=== PATIENT | male | born 1970 | race Caucasian/White ===

== ENCOUNTER 2016-11-22 15:27 | Day surgery (SDC) | payer BC ==
[~2016-11-22] VITALS: Ht 182.9 cm; Wt 93.5 kg
[~2016-11-22 15:27] MED LIST: CIPR500T4 PO; HYDR-762 PO
[2016-11-22 15:55] VITALS: Ht 182.9 cm; Wt 93.5 kg
[2016-11-22] MEDS ORDERED: BP MEDS (16:22)
[2016-11-22 16:36] VITALS: BP 117/70; PULSE 59; RESP 15
[2016-11-22 17:20] VITALS: BP 104/67; RESP 20
--- NOTE | 2016-11-23 04:58 | GILP ---
DATE OF PROCEDURE: 11/22/2016 PREOPERATIVE DIAGNOSES: 1. Right lower quadrant abdominal pain. 2. Change in bowel habits. POSTOPERATIVE DIAGNOSES: 1. Colonoscopy all the way to the cecum and into the terminal ilium. 2. Normal terminal ilium. 3. Internal hemorrhoids. 4. No colitis or neoplasm was identified. PROCEDURE PERFORMED: Colonoscopy. SURGEON: Terry Andrade MD. INDICATION FOR PROCEDURE: Mr. Romario Mark is a 46-year-old male patient who was complaining of right lower quadrant pain associated with change in the bowel habits. The patient was scheduled for colonoscopy for further evaluation. The patient had normal abdominal CT scan. The procedure and possible complications were well explained to the patient. He understood and consented to the procedure. DESCRIPTION OF PROCEDURE: Under the influence of anesthesia the colonoscope was carefully introduced in the rectum and under direct vision it was advanced all the way to the cecum and into the terminal ileum. Findings, the terminal ileum was normal. The cecum and the right colon were normal. The patient was noted to have internal hemorrhoids. No colitis or neoplasm was identified. He tolerated the procedure very well. There was no complications from the procedure. At the end of procedure he was awake with stable vital signs and he was discharged home in the care of his family. IMPRESSION: 1. Normal terminal ileum. 2. Normal colonoscopic examination except for internal hemorrhoids. 3. No colitis or neoplasm was identified. PLAN: 1. Bentyl 10 mg p.o. t.i.d. p.r.n. for pain. 2. High-fiber diet. Dictated By: MD REGGIE Hirsch/adela/jeronimo /Document#: [id number] CC: Terry Andrade MD;*EndCC*
[2016-11-23] MEDS ORDERED: PROPOFOL 60 ML ONE (18:02)
[2016-11-23] MEDS ORDERED: LIDOCAINE 2% (SDV) 5 ML INJ ONE (18:02)
== END 2016-11-22 17:23 | disposition home or self-care (01) ==
LOC: GIL 15:27
PROVIDERS: ATTEND Internal Medicine Gastroenterology
DX: R10.31 Right lower quadrant pain (principal); R19.4 Change in bowel habit; K64.8 Other hemorrhoids; E66.01 Morbid (severe) obesity due to excess calories; Z68.28 Body mass index [BMI] 28.0-28.9, adult

== ENCOUNTER 2018-05-16 07:20 | Inpatient (IN) | payer BC ==
[~2018-05-16] VITALS: Ht 177.8 cm; Wt 97.0 kg
[~2018-05-16 07:20] MED LIST changes: +BP MEDS; -CIPR500T4 PO
[2018-05-16 12:30] VITALS: BP 117/73; PULSE 70; RESP 18
[2018-05-16 12:55] VITALS: Ht 177.8 cm; Wt 97.0 kg
--- NOTE | 2018-05-16 14:10 | HP ---
Date/Time of Note Date/Time of Note DATE: 05/16/18 TIME: 14:07 Assessment/Plan VTE Prophylaxis SCD applied (from [place]): Yes Pharmacological prophylaxis: NA/contraindicated Pharm contraindication: low risk/ambulating Assessment/Plan Assessment/Plan 47-year-old male with history of kidney stones who now presents with R sided flank and groin pain managed as follows: 1. Obstructive nephrolithiasis 2. Severe flank pain secondary to #1 #3 3. Right-sided hydronephrosis on ultrasound and CT secondary to #1 Plan: IV fluids, pain control, urology consult, supportive care. Urinalysis and urine cultures Further evaluation and treatment will be based on clinical course Full discussion with care team done. All questions Answered Please also see orders. HPI/ROS Admit Date/Time Admit Date/Time May 16, 2018 at 11:56 Hx of Present Illness 47-year-old male who had presented to the outpatient emergency room with complaints of severe right flank pain radiating to Rgroin associated with nausea and diaphoresis. Patient has had no hematuria though. He does have a history of kidney stones and has had similar in the past when he had to have cystoscopy and lithotripsy about 3 years ago There is been no fever, no melanotic stools, no passing out episodes. ROS 12 point review if systems was done and pertinent findings are as noted. PMH/Family/Social Past Medical History Nephrolithiasis . Coded Allergies: No Known Allergy (Unverified , 01/28/15) Past Surgical History Cystoscopy and lithotripsy Family History Significant Family History: no pertinent family hx Social History Alcohol Use: occasionally Smoking Status: Current some day smoker Drug Use: none Exam/Review of Systems Exam Constitutional: alert, oriented Psych: anxiety Head: normocephalic Respiratory: clear to auscultation Cardiovascular: regular rate and rhythm Gastrointestinal: soft, tender (R groin) Genitourinary - Male: CVA tenderness Extremities: No edema Neurological: nl mental status, nl speech SHEA OLGUIN May 16, 2018 14:10
[2018-05-16] MEDS ORDERED: DOCUSATE SODIUM 100 MG CAP PO SCH (14:30)
[2018-05-16] MEDS ORDERED: morphine 2 MG INJ IV PRN (14:30)
[2018-05-16] MEDS ORDERED: ONDANSETRON 4 MG INJ IV PRN (14:30)
[2018-05-16] MEDS ORDERED: ZOLPIDEM 5 MG TAB PO PRN (14:30)
[2018-05-16] MEDS ORDERED: LORAZEPAM 0.5 MG TAB PO PRN (15:00)
[2018-05-16] MEDS: SOD CHLORIDE 0.9% 1,000 ML IV SCH ×2 (15:09→19:31)
[2018-05-16] MEDS: KETOROLAC 30 MG INJ IV PRN (15:09)
[2018-05-16] MEDS: morphine 4 MG/ML VIAL IV PRN (17:40)
[2018-05-16] MEDS ORDERED: morphine 4 MG/ML VIAL IV PRN (18:30)
[2018-05-16] MEDS: DOCUSATE SODIUM 100 MG CAP PO SCH (20:01)
[2018-05-16 20:17] VITALS: BP 115/65; PULSE 68; RESP 18
--- NOTE | 2018-05-16 20:39 | CONS ---
Date/Time of Note Date/Time of Note DATE: 05/16/18 TIME: 20:28 Assessment/Plan Assessment/Plan Assessment/Plan 47-year-old male presented to [facility] with right flank pain. He is known to have a history of kidney stones. He had a CT scan of the abdomen and pelvis and that showed a large stone in the right ureter at the level of the sacroiliac joint area. The patient was transferred to [facility] because of his insurance. The patient reports about 3 years ago he underwent extracorporeal shockwave lithotripsy. He had to have a JJ stent and in fact that was put in percutaneously as they were not able to pass it in a retrograde fashion. On the physical exam he still has severe pain and right flank tenderness. The stone that he has measured 8 x 12 mm and it is too big for him to pass. Therefore the plan would be to do a cystoscopy right ureteroscopy, laser lithotripsy and insertion of right ureteral JJ stent. If we cannot remove the stone will try to put the JJ stent. And I explained to him and to his the possibility that he may need more than one treatment because of the size of the stone. Results 24hrs Laboratory Tests Test 05/16/18 17:10 Urine Color YELLOW Urine Clarity CLEAR Urine pH 5.0 Urine Specific [place] 1.019 Urine Ketones NEGATIVE Urine Nitrite NEGATIVE Urine Bilirubin NEGATIVE Urine Urobilinogen NEGATIVE Urine Leukocyte Esterase NEGATIVE Urine Microscopic RBC 13 H Urine Microscopic WBC 3 Urine Mucus FEW A Urine Hemoglobin 3+ H Urine Glucose NEGATIVE Urine Total Protein NEGATIVE Consultation Date/Type/Reason Admit Date/Time May 16, 2018 at 11:56 Date of Consultation: May 16, 2018 Type of Consult Urology Reason for Consultation Right ureteral stone Requesting Provider: SHEA OLGUIN Hx of Present Illness 47-year-old male presented to [facility] with right flank pain. He is known to have a history of kidney stones. He had a CT scan of the abdomen and pelvis and that showed a large stone in the right ureter at the level of the sacroiliac joint area. The patient was transferred to [facility] because of his insurance. The patient reports about 3 years ago he underwent extracorporeal shockwave lithotripsy. He had to have a JJ stent and in fact that was put in percutaneously as they were not able to pass it in a retrograde fashion. Constitutional: no complaints Eyes: no complaints ENT: no complaints Respiratory: No shortness of breath Cardiovascular: no complaints; No chest pain Gastrointestinal: pain (Right side of abdomen and right lower quadrant) Genitourinary: flank pain (Right flank), other (Pain radiates to his right testicle); No dysuria, No hematuria Musculoskeletal: no complaints Skin: no complaints Neurologic: no complaints Endocrine: no complaints Lymphatic: no complaints Psychological: no complaints Immunologic: no complaints Past Medical History Medical History: hypertension Medications Current Medications Sodium Chloride 1,000 ml @ 125 mls/hr Q8H IV Last administered on 05/16/18at 15:09; Admin Dose 125 MLS/HR; Start 05/16/18 at 14:09 Ondansetron HCl (Zofran Inj) 4 mg Q6H PRN IV NAUSEA AND/OR VOMITING; Start 05/16/18 at 14:30 Zolpidem Tartrate (Ambien) 5 mg QHS PRN PO SLEEP; Start 05/16/18 at 14:30 Ketorolac Tromethamine (Toradol) 30 mg Q6H PRN IV PAIN LEVEL 1-3 Last administered on 05/16/18at 15:09; Admin Dose 30 MG; Start 05/16/18 at 14:30; Stop 05/18/18 at 14:29 Lorazepam (Ativan) 0.5 mg Q6H PRN PO ANXIETY; Start 05/16/18 at 15:00 Morphine Sulfate (morphine) 4 mg Q4H PRN IV SEVERE PAIN LEVEL 7-10 Last administered on 05/16/18at 17:40; Admin Dose 4 MG; Start 05/16/18 at 17:30 Docusate Sodium (Colace) 100 mg Q12H PO Last administered on 05/16/18at 20:01; Admin Dose 100 MG; Start 05/16/18 at 21:00 Allergies: Coded Allergies: No Known Allergy (Unverified , 01/28/15) Past Surgical History Past Surgical Hx: other (Right extracorporeal shockwave lithotripsy and insertion of right ureteral JJ stent at the [facility] 3 years ago) Social History Alcohol Use: none Smoking Status: Light tobacco smoker Drug Use: none Exam/Review of Systems Vital Signs Vitals Vital Signs Date Temp Pulse Resp B/P (MAP) Pulse Ox O2 O2 Flow FiO2 Time Delivery Rate 05/16/18 98.4 68 18 115/65 95 20:17 (82) Exam Constitutional: alert, oriented Psych: no complaints Head: normocephalic Eyes: nl conjunctiva ENMT: nl external ears & nose Neck: supple, non-tender Respiratory: normal air movement; No wheezing Cardiovascular: No jugular venous distention (JVD) Gastrointestinal: tender (Right side of abdomen) Genitourinary - Male: nl penis, nl scrotum, CVA tenderness (Right flank) Musculoskeletal: nl extremities to inspection Extremities: No calf tenderness Neurological: nl mental status Medications Medications Current Medications Sodium Chloride 1,000 ml @ 125 mls/hr Q8H IV Last administered on 05/16/18at 15:09; Admin Dose 125 MLS/HR; Start 05/16/18 at 14:09 Ondansetron HCl (Zofran Inj) 4 mg Q6H PRN IV NAUSEA AND/OR VOMITING; Start 05/16/18 at 14:30 Zolpidem Tartrate (Ambien) 5 mg QHS PRN PO SLEEP; Start 05/16/18 at 14:30 Ketorolac Tromethamine (Toradol) 30 mg Q6H PRN IV PAIN LEVEL 1-3 Last administered on 05/16/18at 15:09; Admin Dose 30 MG; Start 05/16/18 at 14:30; Stop 05/18/18 at 14:29 Lorazepam (Ativan) 0.5 mg Q6H PRN PO ANXIETY; Start 05/16/18 at 15:00 Morphine Sulfate (morphine) 4 mg Q4H PRN IV SEVERE PAIN LEVEL 7-10 Last administered on 05/16/18at 17:40; Admin Dose 4 MG; Start 05/16/18 at 17:30 Docusate Sodium (Colace) 100 mg Q12H PO Last administered on 05/16/18at 20:01; Admin Dose 100 MG; Start 05/16/18 at 21:[address] scan of the abdomen and pelvis done at the other hospital showed a 12 x 8 mm stone in the right ureter at the level of the sacroiliac joint. That resulted in right hydronephrosis. INEZ YOUNGER MD May 16, 2018 20:39
[2018-05-17] VITALS (19 sets, daily range): BP systolic 110–161; BP diastolic 62–91; PULSE 58–94; RESP 11–22
[2018-05-17] MEDS: SOD CHLORIDE 0.9% 1,000 ML IV SCH ×3 (00:37→22:32)
[2018-05-17] MEDS: morphine 4 MG/ML VIAL IV PRN ×4 (03:04→21:58)
--- NOTE | 2018-05-17 06:48 | PN ---
Date/Time of Note Date/Time of Note DATE: 05/17/18 TIME: 06:44 Assessment/Plan VTE Prophylaxis Risk score (from [place])>0 risk: 4 SCD applied (from [place]): Yes Pharmacological prophylaxis: NA/contraindicated Pharm contraindication: low risk/ambulating Lines/Catheters IV [facility] (from [facility]): Peripheral IV Urinary Cath still in place: No Assessment/Plan Result Diagram: 05/17/18 0435 05/17/18 0435 Results 24hrs Laboratory Tests Test 05/16/18 17:10 05/16/18 21:08 05/16/18 21:09 05/17/18 04:35 Urine Color YELLOW Urine Clarity CLEAR Urine pH 5.0 Urine Specific 1.019 [place] Urine Ketones NEGATIVE Urine Nitrite NEGATIVE Urine Bilirubin NEGATIVE Urine Urobilinogen NEGATIVE Urine Leukocyte NEGATIVE Esterase Urine Microscopic 13 H RBC Urine Microscopic 3 WBC Urine Mucus FEW A Urine Hemoglobin 3+ H Urine Glucose NEGATIVE Urine Total Protein NEGATIVE White Blood Count 6.1 5.7 Red Blood Count 5.10 5.01 Hemoglobin 14.6 14.5 Hematocrit 42.3 41.3 L Mean Corpuscular 82.9 82.4 Volume Mean Corpuscular 28.6 L 28.9 L Hemoglobin Mean Corpuscular 34.5 35.1 Hemoglobin Concent Red Cell 13.4 13.4 Distribution Width Platelet Count 158 167 Mean Platelet Volume 10.1 10.2 Immature 0.200 0.300 Granulocytes % Neutrophils % 59.4 61.9 Lymphocytes % 28.9 25.9 Monocytes % 8.5 8.6 Eosinophils % 2.8 3.0 Basophils % 0.2 0.3 Nucleated Red Blood 0.0 0.0 Cells % Immature 0.010 0.020 Granulocytes # Neutrophils # 3.6 3.5 Lymphocytes # 1.8 1.5 Monocytes # 0.5 0.5 Eosinophils # 0.2 0.2 Basophils # 0.0 0.0 Nucleated Red Blood 0.0 0.0 Cells # Sodium Level 137 137 Potassium Level 3.7 3.9 Chloride Level 106 106 Carbon Dioxide Level 26 23 Anion Gap 5 8 Blood Urea Nitrogen 19 19 Creatinine 1.83 H 1.82 H Est Glomerular 40 L 40 L Filtrat Rate mL/min Glucose Level 94 88 Calcium Level 8.8 8.5 Total Bilirubin 0.3 Direct Bilirubin 0.00 Indirect Bilirubin 0.3 Aspartate Amino 20 Transf (AST/SGOT) Alanine 21 Aminotransferase (AL T/SGPT) Alkaline Phosphatase 56 Total Protein 6.1 Albumin 3.5 Globulin 2.60 Albumin/Globulin 1.34 Ratio Prothrombin Time 13.0 Prothrombin Time 1.0 Ratio INR International 0.97 Normalized Ratio Activated 26.4 Partial Thromboplast Time Hemoglobin A1c 5.4 Magnesium Level 1.8 Subjective 24 Hr Interval Summary Free Text/Dictation S: Pain is better, but requiring scheduled doses of pain meds O: General: A&O x3, answering questions appropriately HEENT: NC/ AT. PERRL. EOM intact Neck: supple CVS: S1, S2, RRR. no murmurs. no pain on chest wall palpation Lungs: CTA b/l. no wheezing or rhonchi Abd: soft, nontender, +BS Ext: moving all extremities skin: no rashes assessment and Plan: 47-year-old male with history of kidney stones who now presents with flank pain managed as follows: 1. Obstructive nephrolithiasis -s/p urology review, appreciate input -Per urology, The stone is too big for him to pass. Therefore the plan would be to do a cystoscopy right ureteroscopy, laser lithotripsy and insertion of right ureteral JJ stent. If we cannot remove the stone will try to put the JJ stent. -surgery planned for hopefully later today 2. Severe flank pain secondary to #1 #3 -continue pain control 3. Right-sided hydronephrosis on ultrasound and CT secondary to #1 -daily monitoring of renal function 4. YAHAIRA: -likely obstructive from #1 and 3, r/o CKD in view of hx -Renally dose all meds. Serial labs. Further interventions per clinical course. Exam/Review of Systems Vital Signs Vitals Vital Signs Date Temp Pulse Resp B/P (MAP) Pulse Ox O2 O2 Flow FiO2 Time Delivery Rate 05/17/18 98.4 69 18 132/75 94 04:07 (94) 05/16/18 Room Air 12:30 Intake and Output 05/16/18 05/16/18 05/17/18 1515:00 23:00 07:00 IntakeIntake Total 730 ml 1550 ml BalanceBalance 730 ml 1550 ml Medications Medications Current Medications Sodium Chloride 1,000 ml @ 125 mls/hr Q8H IV Last administered on 05/17/18at 00:37; Admin Dose 125 MLS/HR; Start 05/16/18 at 14:09 Ondansetron HCl (Zofran Inj) 4 mg Q6H PRN IV NAUSEA AND/OR VOMITING; Start 05/16/18 at 14:30 Zolpidem Tartrate (Ambien) 5 mg QHS PRN PO SLEEP; Start 05/16/18 at 14:30 Ketorolac Tromethamine (Toradol) 30 mg Q6H PRN IV PAIN LEVEL 1-3 Last administered on 05/16/18at 15:09; Admin Dose 30 MG; Start 05/16/18 at 14:30; Stop 05/18/18 at 14:29 Lorazepam (Ativan) 0.5 mg Q6H PRN PO ANXIETY; Start 05/16/18 at 15:00 Morphine Sulfate (morphine) 4 mg Q4H PRN IV SEVERE PAIN LEVEL 7-10 Last administered on 05/17/18at 03:04; Admin Dose 4 MG; Start 05/16/18 at 17:30 Docusate Sodium (Colace) 100 mg Q12H PO Last administered on 05/16/18at 20:01; Admin Dose 100 MG; Start 05/16/18 at 21:00 SHEA OLGUIN May 17, 2018 06:48
[2018-05-17] MEDS ORDERED: SEVOFLURANE 15 MIN ONE (07:00)
[2018-05-17] MEDS ORDERED: EPHEDrine SULFATE 50 MG/5 ML SYG ONE (07:00)
[2018-05-17] MEDS: DOCUSATE SODIUM 100 MG CAP PO SCH ×2 (08:31→21:00)
[2018-05-17] MEDS: KETOROLAC 30 MG INJ IV PRN (10:14)
--- NOTE | 2018-05-17 18:11 | PREAC ---
Date/Time of Note Date/Time of Note DATE: 05/17/18 TIME: 18:08 Anesthesia Eval and Record Evaluation Time Pre-Procedure Interview DATE: 05/17/18 TIME: 18:08 Age 47 Sex male NPO: 8 hrs Preoperative diagnosis Kidney Stone Right Ureter Planned procedure Cystoscopy Right Ureteroscopy and laser lithotripsy and stent placement Past Medical History Past Medical History: Includes Cardio: HTN GI: Obesity Surgery & Anesthesia Issues No known issue Meds Anticoagulation: No Beta Christiana within 24 hr: No Reason Beta Christiana not given: Pt. not on B-[place] Active Scripts Hydrocodone Bit-Acetaminophen* ([place]*) 10-325 Mg Tablet, 1 TAB PO Q6 PRN for PAIN, #15 TAB Prov:SENDY HYATT SUGAR [employer] 01/28/15 Reported Medications [Bp Meds] No Conflict Check 11/22/16 Current Medications Sodium Chloride 1,000 ml @ 125 mls/hr Q8H IV Last administered on 05/17/18at 10:10; Admin Dose 125 MLS/HR; Start 05/16/18 at 14:09 Ondansetron HCl (Zofran Inj) 4 mg Q6H PRN IV NAUSEA AND/OR VOMITING; Start 05/16/18 at 14:30 Zolpidem Tartrate (Ambien) 5 mg QHS PRN PO SLEEP; Start 05/16/18 at 14:30 Ketorolac Tromethamine (Toradol) 30 mg Q6H PRN IV PAIN LEVEL 1-3 Last administered on 05/17/18at 10:14; Admin Dose 30 MG; Start 05/16/18 at 14:30; Stop 05/18/18 at 14:29 Lorazepam (Ativan) 0.5 mg Q6H PRN PO ANXIETY; Start 05/16/18 at 15:00 Morphine Sulfate (morphine) 4 mg Q4H PRN IV SEVERE PAIN LEVEL 7-10 Last administered on 05/17/18at 15:30; Admin Dose 4 MG; Start 05/16/18 at 17:30 Docusate Sodium (Colace) 100 mg Q12H PO Last administered on 05/17/18at 08:31; Admin Dose 100 MG; Start 05/16/18 at 21:00 Meds reviewed: Yes Allergies Coded Allergies: No Known Allergy (Unverified , 01/28/15) Allergies Reviewed: Yes Labs/Studies Labs Reviewed: Reviewed by anesthesiologist Result Diagram: 05/17/18 0435 05/17/18 0435 Laboratory Tests 05/17/18 04:35 test: N/A Studies: ECG (n/a), CXR (n/a) Pre-procedure Exam Last vitals Vital Signs Date Temp Pulse Resp B/P (MAP) Pulse Ox O2 O2 Flow FiO2 Time Delivery Rate 05/17/18 98.8 63 18 124/78 93 08:30 (93) 05/16/18 Room Air 12:30 Airway: Adequate mouth opening, Adequate thyromental dist Mallampati: Mallampati II Teeth: Normal Lung: Normal Heart: Normal ASA Physical Status ASA physical status: 2 Emergency: None Planned Anesthetic General/MAC: LMA Planned Pain Management Parenteral pain med Pre-operative Attestations Prior to commencing anesthesia and surgery, the patient was re-evaluated, there was verification of: *The patient's identity *The results of appropriate recent lab work and preoperative vital signs *The above evaluation not changing prior to induction *Anesthetic plan, risk benefits, alternative and complications discussed with patient/family; questions answered; patient/family understands, accepts and wishes to proceed. DEVIKA HOYOS MD May 17, 2018 18:11
[2018-05-17] MEDS ORDERED: CEFAZOLIN 1 GM INJ ONE (18:14)
[2018-05-17] MEDS ORDERED: MIDAZOLAM 1 MG/ML 2 ML INJ ONE (18:14)
[2018-05-17] MEDS ORDERED: PROPOFOL 20 ML ONE (18:14)
[2018-05-17] MEDS ORDERED: HYDROmorphONE 1 MG/5 ML IV SYRINGE IV PRN ×3 (18:30)
[2018-05-17] MEDS ORDERED: FENTAnyl 50 MCG/ML VIAL IV PRN ×2 (18:30)
[2018-05-17] MEDS ORDERED: EPHEDrine SULFATE 50 MG/5 ML SYG IV PRN (18:30)
[2018-05-17] MEDS ORDERED: DIPHENHYDRAMINE 50 MG INJ IV PRN (18:30)
[2018-05-17] MEDS ORDERED: hydrALAzine 20 MG INJ IV PRN (18:30)
[2018-05-17] MEDS ORDERED: METOCLOPRAMIDE 10 MG INJ IV PRN (18:30)
[2018-05-17] MEDS ORDERED: ONDANSETRON 4 MG INJ IV PRN (18:30)
[2018-05-17] MEDS ORDERED: MEPERIDINE 25 MG INJ IV PRN (18:30)
[2018-05-17] MEDS ORDERED: LABETALOL HCL 20MG INJ IV PRN (18:30)
[2018-05-17] MEDS ORDERED: PHENYLephrine (100 MCG/ML) 5ML SYG ONE ×2 (18:47)
[2018-05-17] MEDS ORDERED: ONDANSETRON 4 MG INJ ONE (18:50)
[2018-05-17] MEDS ORDERED: KETOROLAC 30 MG INJ ONE (18:51)
[2018-05-17] MEDS ORDERED: DEXAMETHASONE 4 MG/ML 5 ML INJ ONE (18:51)
[2018-05-17] MEDS ORDERED: METOCLOPRAMIDE 10 MG INJ ONE (18:51)
--- NOTE | 2018-05-17 20:06 | PAC ---
Date/Time of Note Date/Time of Note DATE: 05/17/18 TIME: 20:05 Post-Anesthesia Notes Post-Anesthesia Note Last documented vital signs Vital Signs Date Temp Pulse Resp B/P (MAP) Pulse Ox O2 O2 Flow FiO2 Time Delivery Rate 05/17/18 98.8 63 18 124/78 93 face mask 8 L 20:00 (93) 05/16/18 Room Air 12:30 Activity: WNL Respiratory function: WNL Cardiovascular function: WNL Mental status: Baseline Pain reasonably controlled: Yes Hydration appropriate: Yes Nausea/Vomiting absent: Yes DEVIKA HOYOS MD May 17, 2018 20:06
--- NOTE | 2018-05-17 20:20 | OPR ---
Date/Time of Note Date/Time of Note DATE: 05/17/18 TIME: 20:14 Operative Report Procedure Date: May 17, 2018 Preoperative Diagnosis Large right ureteral stone Postoperative Diagnosis Same Operation/Procedure Performed Cystoscopy, right ureteroscopy, laser lithotripsy and insertion of right ureteral JJ stent Surgeon see signature line Pegger Dobby Looms Lisa Schumacher Anesthesia Type: general Anesthesiologist: DEVIKA HOYOS MD Estimated Blood Loss: none Transfusion none Specimen Stone fragments Grafts/Implants none Tubes/Drains 6 Brazilian by 24 cm long JJ stent Complications none Pt Condition Post Procedure: stable Disposition: PACU Indications Large right ureteral stone causing obstruction and severe pain Procedure Description The patient was brought to the operating room and general anesthesia was induced. The patient received 2 g of Ancef IV at the start of the procedure. Timeout was done and the patient was identified by his name,birthdate and the procedure and the side of the procedure. The patient was then positioned in the lithotomy position and the genital area was prepped and draped in the usual sterile manner. A 21 Brazilian cystoscope sheath was introduced i under direct vision through the penile urethra and into the bladder. The right ureteral orifice was identified and then cannulated with a 5 Brazilian open ended ureteral catheter. A 0.035 zip wire was advanced through the open ended catheter all the way up to the kidney. The open-ended was removed leaving the zip wire in place. The open-ended was then introduced through the second working channel of the scope and the ureteral orifice was cannulated again and a 0.035 zip wire was passed all the way up to the kidney. The open-ended was removed leaving the wires in place. Then the cystoscope was removed. One wire was used as a safety wire and the other wire was used to advance the rigid ureteroscope on it into the ureter. The stone was then visualized and broken with the holmium laser into pieces. These pieces were basketed and dropped into the bladder until the ureter was free of stone fragments. The ureteroscope was then removed. Cystoscopy was done again and the stone fragments were drained out of the bladder. Then the cystoscope was reintroduced into the bladder over the safety wire and a 6 Brazilian by 24 cm long JJ stent was advanced on the wire, had its proximal end curling into the kidney and the distal end curling into the bladder. The distal end is connected to a string that was taped to the patient's penis. The patient was transferred to recovery room in stable and satisfactory condition INEZ YOUNGER MD May 17, 2018 20:20
[2018-05-17] MEDS ORDERED: HYDROCODONE/APAP (5/325) TAB PO PRN (20:30)
[2018-05-17] MEDS: FENTAnyl 50 MCG/ML VIAL IV PRN ×2 (21:12→22:28)
--- NOTE | 2018-05-17 21:49 | RADRPT ---
Vent Rate: 63 bpm RR Interval: 0 msec HI Interval: 152 msec QRS Duration: 94 msec QT Interval: 366 msec QTC Interval: 374 msec P-R-T [place]: 55 - -24 - 51 degrees Normal sinus rhythm Normal ECG Electronically Signed By: Cole Corona [id number]
[2018-05-18] VITALS: BP_SYST 111; BP_SYST 125; BP_SYST 98; BP_DIAS 60; BP_DIAS 62; BP_DIAS 65; PULSE 72; PULSE 79; PULSE 89; RESP 20
[2018-05-18 05:00] VITALS: BP 135/73; RESP 18
[2018-05-18] MEDS: SOD CHLORIDE 0.9% 1,000 ML IV SCH (06:41)
--- NOTE | 2018-05-18 07:08 | PN ---
Date/Time of Note Date/Time of Note DATE: 05/18/18 TIME: 07:06 Assessment/Plan VTE Prophylaxis Risk score (from Ns)>0 risk: 7 SCD applied (from Ns): Yes Pharmacological prophylaxis: NA/contraindicated Pharm contraindication: hemorrhagic infarct Lines/Catheters IV Catheter Type (from Nrs): Peripheral IV Urinary Cath still in place: No Assessment/Plan Result Diagram: 05/17/1843405/17/18434 Subjective 24 Hr Interval Summary Free Text/Dictation S: s/p surgery yesterday, smild post op pain O: General: A&O x3, answering questions appropriately HEENT: NC/ AT. PERRL. EOM intact Neck: supple CVS: S1, S2, RRR. no murmurs. no pain on chest wall palpation Lungs: CTA b/l. no wheezing or rhonchi Abd: soft, nontender, +BS Ext: moving all extremities skin: no rashes assessment and Plan: 47-year-old male with history of kidney stones who now presents with flank pain managed as follows: 1. Obstructive nephrolithiasis -s/p cystoscopy right ureteroscopy, laser lithotripsy and insertion of right ureteral JJ stent 05/17/18 2. Severe flank pain secondary to #1 #3; resolved 3. Right-sided hydronephrosis on ultrasound and CT secondary to #1 -see #1 4. YAHAIRA: -likely obstructive from #1 and 3, r/o CKD in view of hx -Renally dose all meds. f/u am labs 5. alpha hemolytic strep UTI -20-30,000 CFU, will give 1 dose of zosyn Dispo: possible d/c later today if cleared by urology Exam/Review of Systems Vital Signs Vitals Vital Signs Date Temp Pulse Resp B/P (MAP) Pulse Ox O2 O2 Flow FiO2 Time Delivery Rate 05/18/18 98.8 18 135/73 93 Room Air 05:00 (93) 05/18/18 89 00:00 05/17/18 8.0 20:30 Intake and Output 05/17/18 05/17/18 05/18/18 1515:00 23:00 07:00 IntakeIntake Total 760 ml 1700 ml 850 ml OutputOutput Total 200 ml 5 ml BalanceBalance 560 ml 1695 ml 850 ml Medications Medications Current Medications Sodium Chloride 1,000 ml @ 125 mls/hr Q8H IV Last administered on 05/18/18at 06:41; Admin Dose 125 MLS/HR; Start 05/16/18 at 14:09 Ondansetron HCl (Zofran Inj) 4 mg Q6H PRN IV NAUSEA AND/OR VOMITING; Start 05/16/18 at 14:30 Zolpidem Tartrate (Ambien) 5 mg QHS PRN PO SLEEP; Start 05/16/18 at 14:30 Ketorolac Tromethamine (Toradol) 30 mg Q6H PRN IV PAIN LEVEL 1-3 Last administered on 05/17/18at 10:14; Admin Dose 30 MG; Start 05/16/18 at 14:30; Stop 05/18/18 at 14:29 Lorazepam (Ativan) 0.5 mg Q6H PRN PO ANXIETY; Start 05/16/18 at 15:00 Morphine Sulfate (morphine) 4 mg Q4H PRN IV SEVERE PAIN LEVEL 7-10 Last administered on 05/17/18at 21:58; Admin Dose 4 MG; Start 05/16/18 at 17:30 Docusate Sodium (Colace) 100 mg Q12H PO Last administered on 05/17/18at 08:31; Admin Dose 100 MG; Start 05/16/18 at 21:00 Acetaminophen/ Hydrocodone Bitart ([place] (5/325)) 1 tab Q6H PRN PO PAIN LEVEL 6-10; Start 05/17/18 at 20:30 Atenolol (Tenormin) 50 mg DAILY PO ; Start 05/18/18 at 09:00 SHEA OLGUIN May 18, 2018 07:08
[2018-05-18] MEDS ORDERED: PIPER-TAZO 3.375 GM IV (PMX) 100 ML IVPB ONE (07:30)
[2018-05-18] MEDS: KETOROLAC 30 MG INJ IV PRN (07:39)
[2018-05-18 08:06] VITALS: BP 121/65; PULSE 74; RESP 18
[2018-05-18] MEDS ORDERED: ATENOLOL 50 MG TAB PO SCH (09:00)
[2018-05-18] MEDS: DOCUSATE SODIUM 100 MG CAP PO SCH (09:09)
[2018-05-18] MEDS: morphine 4 MG/ML VIAL IV PRN (09:12)
[2018-05-18] MEDS ORDERED: ATEN50TA PO (12:49)
[2018-05-18] MEDS ORDERED: DOCU-216 PO (12:49)
--- NOTE | 2018-05-18 14:58 | CONS ---
Date/Time of Note Date/Time of Note DATE: 05/18/18 TIME: 14:54 Consult Date/Type/Reason Admit Date/Time May 16, 2018 at 11:56 Initial Consult Date 05/16/18 Type of Consultation: Urology Reason for Consultation Right ureteral stone,status post ureteroscopy,laser lithotripsy,insertion of JJ stent Requesting Provider: SHEA OLGUIN Subjective Patient is feeling much better. Pain is less and he is voiding well.The urine is blood tinged Objective Vital Signs Date Temp Pulse Resp B/P (MAP) Pulse Ox O2 O2 Flow FiO2 Time Delivery Rate 05/18/18 98.0 74 18 121/65 94 Room Air 08:06 (83) 05/17/18 8.0 20:30 Intake and Output 05/17/18 05/17/18 05/18/18 1515:00 23:00 07:00 IntakeIntake Total 760 ml 1700 ml 850 ml OutputOutput Total 200 ml 5 ml BalanceBalance 560 ml 1695 ml 850 ml Exam Abdomen is soft,no flank tenderness Results/Medications Result Diagram: 05/18/18 0835 05/18/18 0835 Results 24 hrs Laboratory Tests Test 05/18/18 08:35 White Blood Count 5.7 Red Blood Count 5.55 Hemoglobin 15.8 Hematocrit 45.1 Mean Corpuscular Volume 81.3 L Mean Corpuscular Hemoglobin 28.5 L Mean Corpuscular Hemoglobin Concent 35.0 Red Cell Distribution Width 12.8 Platelet Count 186 Mean Platelet Volume 10.5 H Immature Granulocytes % 0.500 H Neutrophils % 90.3 H Lymphocytes % 7.8 L Monocytes % 1.2 Eosinophils % 0.0 Basophils % 0.2 Nucleated Red Blood Cells % 0.0 Immature Granulocytes # 0.030 Neutrophils # 5.1 Lymphocytes # 0.4 L Monocytes # 0.1 L Eosinophils # 0.0 Basophils # 0.0 Nucleated Red Blood Cells # 0.0 Sodium Level 138 Potassium Level 4.3 Chloride Level 105 Carbon Dioxide Level 22 Anion Gap 11 Blood Urea Nitrogen 15 Creatinine 1.09 Est Glomerular Filtrat Rate mL/min > 60 Glucose Level 187 Calcium Level 9.0 Magnesium Level 1.9 Assessment/Plan Chief Complaint/Hosp Course 47 year old male is status post right ureteroscopy,laser lithotripsy anmd insertion of right urteral JJ stent. He is doing well,has less pain and voiding blood tinged urine. He may go home today and follow up in the office next week to remove the stent INEZ YOUNGER MD May 18, 2018 14:58
--- NOTE | 2018-05-24 08:56 | QN ---
Documentation Comment Patient called to notify of positive urine culture and to see if treatment is required, message left on VM of contact to be notified in the chart. SHEA OLGUIN. May 24, 2018 08:56
--- NOTE | 2018-05-24 09:03 | DS ---
DATE OF ADMISSION: 05/16/2018 DATE OF DISCHARGE: 05/18/2018 ADMISSION DIAGNOSIS: Severe flank pain secondary to obstructive nephrolithiasis with right-sided hyd ronephrosis. FINAL DIAGNOSIS: Severe flank pain secondary to obstructive nephrolithiasis with right-sided hydrone phrosis, for which patient is status post ureteroscopy, laser lithotripsy and insertion of JJ stent. A urine culture also grew out alpha hemolytic strep species and the patient was being discharged wit h antibiotics for treatment. CONSULTS ON THE CASE: Dr. Trevor Dozier for urology. INTERVENTIONS: As summarized above. DISCHARGE CONDITION: Stable. ACTIVITY: As tolerated. FOLLOWUP: The patient is to follow up with Dr. Dozier within the next week per his instructions for stent removal. Please note that urine culture came back positive after patient had been discharged and so patient will be notified and a prescription sent to his pharmacy for treatment. DIET: Recommended diet is regular. ACTIVITY: As tolerated. Time spent on discharge coordination was about 35 minutes. Dictated By: SHEA OLGUIN MD BA/NTS Conf#: [id number] DID#: [id number] CC: SUREKHA ALBERTO MD;*EndCC*
== END 2018-05-18 14:13 | disposition home or self-care (01) | DRG 661 ==
LOC: MS1 11:56
PROVIDERS: ADMIT Internal Medicine; ATTEND Family Medicine
PROC: 0T768DZ Dilation of Right Ureter with Intraluminal Device, Via Natural or Artificial Opening Endoscopic (ICD-10-PCS; 2018-05-17)
PROC: 0TC68ZZ Extirpation of Matter from Right Ureter, Via Natural or Artificial Opening Endoscopic (ICD-10-PCS; 2018-05-17)
PROC: 0TCB8ZZ Extirpation of Matter from Bladder, Via Natural or Artificial Opening Endoscopic (ICD-10-PCS; principal; 2018-05-17 17:30)
DX: N13.6 Pyonephrosis (principal); N17.9 Acute kidney failure, unspecified; B95.0 Streptococcus, group A, as the cause of diseases classified elsewhere; I10 Essential (primary) hypertension; F17.210 Nicotine dependence, cigarettes, uncomplicated; Z87.442 Personal history of urinary calculi
CPT/HCPCS: 71045; 74018; 74430; 80048; 80053; 81001; 83036; 83735; 85025; 85610; 85730; 87081; 87086; 88300; 93005; C2617; J0690; J1100; J1885; J2250; J2270; J2370; J2405; J2543; J2765; J3010; J7030